=== PATIENT | female | born 1975 | race Caucasian/White ===

== ENCOUNTER → 2020-04-30 09:18 | Outpatient (CLI) | payer BC, SELFPAY ==
[2020-04-30 09:17] VITALS: BMI 33.6
--- NOTE | 2020-04-30 09:20 | RAD_ITS ---
STUDY: X-RAY - RIGHT HAND, ATTENTION MIDDLE FINGER REASON FOR EXAM: Female, 44 years old. INJURY X 2 WEEKS. PAIN DIP TECHNIQUE: 3 view(s) of the finger were obtained. COMPARISON: None. FINDINGS: Normal metacarpal head. Normal metacarpophalangeal joint. Normal proximal phalanx. Normal middle phalanx. Normal distal phalanx. Normal proximal interphalangeal joint. Normal distal interphalangeal joint. RAD/Finger(s) Min 2 Views IMPRESSION: Normal x-ray examination of the finger. Electronically Signed: Gail Quevedo, at 9:54 EDT Tel , Service support ,
== END ==
PROVIDERS: Referring Provider Physician Assistant; Visit Provider Physician Assistant
DX: S69.91XA Unspecified injury of right wrist, hand and finger(s), initial encounter (principal); X58.XXXA Exposure to other specified factors, initial encounter; Y93.9 Activity, unspecified; Y92.9 Unspecified place or not applicable; Y99.9 Unspecified external cause status
CPT/HCPCS: 73140